=== PATIENT | female | born 1960 | race Caucasian/White ===

== ENCOUNTER 2018-08-05 17:17 | Inpatient (IN) | payer OTHER ==
[~2018-08-05] VITALS: Ht 172.7 cm; Wt 86.2 kg
[2018-08-05 17:17] VITALS: BP 110/67
[2018-08-05 17:39] LABS: ABSOLUTE NEUTROPHILS 4.1 thou/uL (1.4-8.2); BASOPHILS 0.6 % (0.0-2.0); EOSINOPHILS 1.9 % (0.0-3.0); HEMATOCRIT 27.1 % (37.0-47.0); HEMOGLOBIN 9.3 gm/dL (12.0-15.0); MCH 27.8 pg (26.0-34.0); MCHC 34.5 g/dL (28.0-37.0); MCV 80.6 fL (80.0-100.0); MONOCYTES 6.5 % (1.0-8.0); PLATELET COUNT 177 thou/uL (150-400); RBC 3.36 mil/uL (4.20-5.00); RDW 15.1 % (10.5-14.5); WBC 5.1 thou/uL (4.0-11.0)
[2018-08-05 17:45] LABS: ANION GAP 10 mmol/L (7-16); BUN 44 mg/dL (7-18); CALCIUM 8.2 mg/dL (8.5-10.1); CHLORIDE 102 mmol/L (98-107); CO2 23 mmol/L (21-32); GLUCOSE 131 mg/dL (74-106); POTASSIUM 4.5 mmol/L (3.5-5.1); SODIUM 135 mmol/L (136-145)
[2018-08-05 17:54] LABS: ALBUMIN 2.8 g/dL (3.4-5.0); SGOT 30 U/L (15-37); SGPT 27 U/L (30-65); TOTAL BILIRUBIN 0.3 mg/dL (<0.1-1.0); TOTAL PROTEIN 6.2 g/dL (6.4-8.2); TROPONIN-I <0.06 ng/mL (<0.06)
--- NOTE | 2018-08-05 19:11 | EKG ---
[facility] [place] [address] ELECTROCARDIOGRAM REPORT Name: NAINA HER Room #: [id number] ������������������ Admission: 08/05/18 ������������������ Attend Phys: Discharge: ������������������ Date of : 60 Report #: [id number] ����������������������������������������������������������������� [id number] THIS REPORT FOR: //name// [facility] ED Test Date: 2018-08-05 Test Time: 17:26:07 Pat Name: NAINA HER Department: Room: Gender: F Patient Educator: NORA : 1960 Requested By: Daxa Maldonado Order Number: [id number] MD: Parviz Casas Measurements Intervals [place] Rate: 62 P: 52 W[place]: 195 QRS: -26 QRSD: 105 T: 151 QT: 426 QTc: 433 Interpretive Statements Sinus rhythm Borderline left axis deviation Low voltage, precordial leads Consider anterior infarct age indeterminate Baseline wander in lead(s) V3 Nonspecific ST-T wave changes No previous ECG available for comparison Electronically Signed On 08-05-2018 19:11:32 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
[2018-08-05 21:59] VITALS: BP 112/59
[2018-08-05 22:17] VITALS: BP 114/60
[2018-08-05 22:51] VITALS: BP 111/57
[2018-08-05 23:18] LABS: % SATURATION 18 % (20-39); IRON 46 ug/dL (50-170); TIBC 257 ug/dL (250-450)
[2018-08-05 23:46] LABS: FOLIC ACID 12.4 ng/mL (8.6-58.9); TSH 190.086 uIU/mL (0.358-3.740)
[2018-08-06 02:19] VITALS: BP 123/65
[2018-08-06 02:38] LABS: HEMATOCRIT 25.8 % (37.0-47.0); HEMOGLOBIN 8.4 gm/dL (12.0-15.0); MCH 26.6 pg (26.0-34.0); MCHC 32.5 g/dL (28.0-37.0); MCV 81.8 fL (80.0-100.0); RBC 3.15 mil/uL (4.20-5.00); RDW 15.2 % (10.5-14.5); WBC 5.2 thou/uL (4.0-11.0)
[2018-08-06 03:07] LABS: ANION GAP 12 mmol/L (7-16); BUN 45 mg/dL (7-18); CALCIUM 7.6 mg/dL (8.5-10.1); CHLORIDE 101 mmol/L (98-107); CHOLESTEROL 148 mg/dL (<200); CO2 19 mmol/L (21-32); CREATININE 2.1 mg/dL (0.6-1.0); GLUCOSE 181 mg/dL (74-106); HDL CHOLESTEROL 51 mg/dL (>40); LDL CHOLESTEROL 59 mg/dL (<100); POTASSIUM 4.3 mmol/L (3.5-5.1); SODIUM 132 mmol/L (136-145); TC:HDL 2.9 Ratio (Not establshd); TRIGLYCERIDE 193 mg/dL (<150); TROPONIN-I <0.06 ng/mL (<0.06); VLDL 39 mg/dL (<40)
[2018-08-06 03:09] LABS: SERUM ASSESSMENT Clear
[2018-08-06] MEDS ORDERED: NOVOLOG MI100 UNIT/M SUBQ (05:14)
[2018-08-06 07:35] VITALS: BP 145/77
--- NOTE | 2018-08-06 11:32 | 2DMMODE ---
[facility] [address] [place] [address] 2 D/M-MODE ECHOCARDIOGRAM Name: NAINA HER Room #: 464-P ADM IN M.R.#: [id number] ������������� Admission: 08/05/18 ������������� Attend Phys: Honorio Ramírez Discharge: ��� ������������� ��� Date of : 60 Date of Service: 08/06/18 1132 �� Report #: [id number] �������� ��������������������������������������������[id number] THIS REPORT FOR: //name// APPROVED REPORT Study performed: 08/06/2018 08:25:05 EXAM: Comprehensive 2D, Doppler, and color-flow Echocardiogram Patient Location: Bedside Room #: 464 Status: routine BSA: 2.00 HR: 59 bpm BP: 145/77 mmHg Rhythm: NSR Other Information Study Quality: Adequate Risk Factors: Cardiac Risk Factors: DM, HTN, Hyperlipidemia Indications COPD Dyspnea CAD 2D Dimensions IVSd: 14.70 (7-11mm) LVOT Diam: 21.00 (18-24mm) LVDd: 43.74 mm PWd: 14.94 (7-11mm) Ascending Ao: 28.21 (22-36mm) LVDs: 33.64 (25-40mm) Aortic Root: 25.19 mm LV Single Plane 4CH: 4.00 % LV Single Plane 2CH: 47.87 % Biplane EF: 42.0 % Volumes Left Atrial Volume (Systole) Single Plane 4CH: 64.68 mL Single Plane 2CH: 41.04 mL LA ESV Index: 31.00 mL/m2 Aortic Valve AoV Peak Shankar.: 1.74 m/s [facility] [address] [place] [address] 2 D/M-MODE ECHOCARDIOGRAM Name: ARDENNAINA Iker Room #: 464-P [facility].#: [id number] ������������� Admission: 08/05/18 ������������� Attend Phys: Honorio Ramírez Discharge: ��� ������������� ��� Date of : 60 Date of Service: 08/06/18 1132 �� Report #: [id number] �������� ��������������������������������������������[id number] AO Peak Gr.: 13.98 mmHg LVOT Max P.42 mmHg LVOT Max V: 0.78 m/s MITCH Vmax: 1.52 cm2 Mitral Valve E/A Ratio: 0.8 MV Decel. Time: 226.32 ms MV E Max Shankar.: 0.80 m/s MV A Shankar.: 0.98 m/s MV PHT: 65.63 ms IVRT: 69.20 ms TDI E/Lateral E': 20.00 E/Medial E': 20.00 Medial E' Shankar.: 0.04 m/s Lateral E' Shankar.: 0.04 m/s Pulmonary Valve PV Peak Shankar.: 1.10 m/s PV Peak Gr.: 4.85 mmHg Tricuspid Valve RAP Estimate: 10.00 mmHg Left Ventricle The left ventricle is normal size. moderate Latera wall hypokinesis. Moderate concentric left ventricular hypertrophy. Left ventricular systolic function is mildly decreased. LVEF is 40-45%. Mild diastolic dysfunction is present (impaired relaxation pattern). Right Ventricle The right ventricle is normal size. The right ventricular systolic function is normal. Atria The left atrium size is normal. The right atrium size is normal. Aortic Valve The Aortic valve is sclerotic. No aortic regurgitation is present. There is no aortic valvular stenosis. Mitral Valve There is mitral annular calcification. Mild to moderate mitral regurgitation. No evidence of mitral valve stenosis. Tricuspid Valve [facility] [address] [place] [address] 2 D/M-MODE ECHOCARDIOGRAM Name: NAINA HER Room #: 464-P ADM IN M.R.#: [id number] ������������� Admission: 08/05/18 ������������� Attend Phys: Honorio Ramírez Discharge: ��� ������������� ��� Date of : 60 Date of Service: 08/06/18 1132 �� Report #: [id number] �������� ��������������������������������������������[id number] The tricuspid valve is normal in structure. There is no tricuspid valve regurgitation noted. Pulmonic Valve The pulmonary valve is normal in structure. There is no pulmonic valvular regurgitation. Great Vessels The aortic root is normal in size. IVC is mildly dilated and collapses <50% with inspiration. Pericardium Mild to moderate circumferential pericardial effusion. <Conclusion> The left ventricle is normal size. LVEF is 40-45%. moderate Latera wall hypokinesis. The Aortic valve is sclerotic. There is mitral annular calcification. Mild to moderate mitral regurgitation. The pulmonary valve is normal in structure. The aortic root is normal in size. Mild to moderate circumferential pericardial effusion. ��������������������������������������������� <ELECTRONICALLY SIGNED> ���������������������������������������� By: Parviz Casas MD ��������������������������������������������� 08/06/18 1132 113 113 Parviz Casas MD /INF
--- NOTE | 2018-08-06 13:28 | NUR ---
Assumed pt care at 0715. pt was a/ox4 with some axniousness about the evening shift. tried to relieve some of the anxiety by taking care of her needs. will continue to monitor pt.\
--- NOTE | 2018-08-06 16:09 | NUR ---
PT ADMITTED RELATED TO SHORTNESS OF BREATH, CHEST PAIN. CM MET WITH PT AT BEDSIDE THIS DAY. PT IS A&O X4. CM ROLE INTRODUCED. PT INDICATED SHE LIVES IN A HOUSE WITH HER SPOUSE, SON, DTR IN LAW, AND TWO GRANDCHILDREN. PT INDICATED THERE IS 1 STEP TO ENTER AND NO STEPS INSIDE. 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 PT INDICATED NO HH HX. PT INDICATED SHE HAS BSC. PT INDICATED SHE HAD [place] MEDICAID BUT THAT SHE HAD A [place]ICAID AP PENDING. PT INDICATED SHE PLANS TO RETURN HOME ONCE MEDICALLY STABLE. CM TO FOLLOW INDICATED WITH DC PLANNING.
[2018-08-06 16:38] VITALS: BP 128/57
[2018-08-06 20:06] VITALS: BP 110/57
[2018-08-07 04:57] VITALS: BP 144/55
--- NOTE | 2018-08-07 06:00 | NUR ---
Pt. rested quietly at intervals during the night when checked on during frequent rounds. She offers no c/o pain. No c/o shortness of air. Bed alarm is on.
[2018-08-07 07:34] VITALS: BP 167/82
[2018-08-07] MEDS ORDERED: ASPIR 8181 MG PO (07:55)
[2018-08-07] MEDS ORDERED: NORVASC5 MG PO (07:55)
[2018-08-07] MEDS ORDERED: PLAVIX 75 MG TA75 M1 PO (07:56)
[2018-08-07] MEDS ORDERED: LIPITOR80 MG PO (07:56)
[2018-08-07] MEDS ORDERED: SYNTHROID125 MC1 PO (07:57)
[2018-08-07] MEDS ORDERED: IMDUR 30 MG TAB30 M1 PO (07:57)
[2018-08-07] MEDS ORDERED: TOPROL XL25 MG PO (07:58)
--- NOTE | 2018-08-07 09:49 | NUR ---
Pt states "I have a small wound on my leg that won't heal. I first saw it two weeks ago." I observed a small wound on the pts lower right leg. The wound appeared closed, dry, and black. The pt did not state tenderness when the wound was palpated. The pt c/o loss of feeling in her right leg, from the hip down, that she said started three weeks ago.
--- NOTE | 2018-08-07 12:52 | NUR ---
CARE TEAM INDICATED THAT PT WILL LIKELY BE HERE OVER THE WEEKEND DUE TO A POSITIVE STRESS TEST CARDIOLOGY IT TO SEE PT. CM TO FOLLOW INDICATED WITH DC PLANNING.
[2018-08-07 14:20] VITALS: BP 129/59
--- NOTE | 2018-08-07 17:30 | NUR ---
WOUND CONSULT: PT. WAS SEEN TODAY BY DR. KELLER AND MYSELF. PT. IS MISSING A TOENAIL TO HER RIGHT FOOT 5TH TOE AND THERE IS A CHRONIC ULCER TO HER RIGHT POSTERIOR CALF THAT IS DRY, BLACK, ESCHAR. PT. REPORTS THAT THIS AREA IS TENDER. RECOMMENDATIONS: GENT TO RIGHT TOE AND BETADINE TO CALF, COMPLETE CARES DAILY PT. AND STAFF NURSE WERE INSTRUCTED ON PLAN OF CARE.
[2018-08-07 20:00] VITALS: BP 127/56
[2018-08-08 04:00] VITALS: BP 127/73
[2018-08-08 05:23] LABS: ALBUMIN 2.5 g/dL (3.4-5.0); CREATININE 2.3 mg/dL (0.6-1.0); PHOSPHORUS 4.2 mg/dL (2.5-4.9); POTASSIUM 4.5 mmol/L (3.5-5.1)
--- NOTE | 2018-08-08 06:00 | NUR ---
Pt. reted quietly at intervals during the night when checked on during frequent rounds. Pt. c/o generalized pain and was given po pain meds (see emar) with some relief noted. She c/o anxiety and prn xanax given (see emar) with some relief noted. Bed alarm is on.
[2018-08-08 08:00] VITALS: BP 146/83
[2018-08-08 11:23] LABS: URINE BILIRUBIN NEGATIVE (Negative); URINE BLOOD 1+ (Negative); URINE CLARITY CLEAR; URINE COLOR YELLOW; URINE GLUCOSE-RANDOM* TRACE (Negative); URINE KETONES NEGATIVE (Negative); URINE LEUKOCYTES TRACE (Negative); URINE NITRITE NEGATIVE (Negative); URINE PROTEIN (DIPSTICK) 2+ (Negative); URINE SPECIFIC GRAVITY 1.015 (1.005-1.035); URINE UROBILINOGEN 0.2 E.U./dl (0.2-1.0)
[2018-08-08 11:31] LABS: AMP/METHAMP Negative (Negative); BARBITURATES Negative (Negative); BENZODIAZEPINES Negative (Negative); COCAINE Negative (Negative); METHADONE Negative (Negative); OPIATES Negative (Negative); PCP Negative (Negative)
[2018-08-08 11:32] LABS: PROT/CREAT RATIO 6.2; URINE CREATININE-RANDOM* 42.2 mg/dL; URINE PROTEIN-RANDOM* 260.9 mg/dL (<11.9)
[2018-08-08 11:37] LABS: CASTS None Seen /LPF (None Seen); CRYSTALS None Seen /LPF (None Seen); SQUAMOUS 0-3 Few /LPF (0-3); URINE RBC 0-2 Rare /HPF (0-2); URINE WBC 0-5 Rare /HPF (0-5)
[2018-08-08 15:00] VITALS: BP 134/63
--- NOTE | 2018-08-08 18:54 | NUR ---
VSS-AFEBRILE. SR WITH OCCASIONAL ECTOPY. LUNGS DIMINISHED IN ALL THOMAS BILATERALLY. NO REPORTED PAIN. VERY SLEEPY ALL DAY, AWOKE FOR MEALS AND TO USE RESTROOM. ABLE TO TRANSFER SELF FROM BED TO COMMODE WITH STANDBY ASSIST. NO DIFFICULTY VOIDING, NO BM THIS SHIFT. NO REPORTED N/V. CARDIAC CATH SET FOR Friday08/10/18, PATIENT EDUCATED ON PROCEDURE, ALL QUESTIONS ANSWERED. CALLS APPROPRIATELY FOR ASSISTANCE.
[2018-08-09 03:32] VITALS: BP 125/75
--- NOTE | 2018-08-09 04:33 | NUR ---
Pt. rested quietly at intervals during the night when checked on during frequent rounds. She c/o tailbone pain and was given po tylenol (see emar) with some relief noted. She also c/o anxiety and was given po xanax (see emar) with some relief noted. Bed alarm is on.
[2018-08-09 04:38] LABS: ALBUMIN 2.6 g/dL (3.4-5.0); CALCIUM 8.8 mg/dL (8.5-10.1); CREATININE 2.4 mg/dL (0.6-1.0); PHOSPHORUS 4.3 mg/dL (2.5-4.9)
[2018-08-09 07:42] VITALS: BP 129/64
[2018-08-09 13:27] VITALS: BP 111/56
--- NOTE | 2018-08-09 14:38 | NUR ---
TOWARDS POC PT A/O X4, VSS,AFEBRILE. FALL PRECAUTION IN PLACE. PT WILL BE NPO AT MD, FOR CARDIAC CATH IN AM, CONSENT SIGNED, ATTACHED TO CHART. WILL CONTINUE TO MONITOR.
[2018-08-09 19:09] VITALS: BP 102/51
[2018-08-10] VITALS (8 sets, daily range): BP systolic 126–149; BP diastolic 59–75
[2018-08-10 06:09] LABS: ALBUMIN 2.8 g/dL (3.4-5.0); CALCIUM 8.5 mg/dL (8.5-10.1); CREATININE 2.3 mg/dL (0.6-1.0); POTASSIUM 5.6 mmol/L (3.5-5.1)
--- NOTE | 2018-08-10 11:25 | HC ---
[facility] [place] [address] CONSULTATION Name: NAINA HER Room #: 464-P ADM IN M.R.#: [id number] Admission: 08/05/18 ������������������ Attend Phys: Honorio Tate Discharge: ������������������ Date of : 60 Report #: [id number] THIS REPORT FOR: //name// CC: Honorio Tate NO PCP DATE OF SERVICE: 08/07/2018 REASON FOR CONSULTATION: Chronic kidney disease. HISTORY OF PRESENT ILLNESS: This 58-year-old patient with longstanding diabetes and triopathy was admitted with chest tightness and shortness of air. She has history of coronary artery disease, status post 7 previous coronary stents. She had a nuclear test, which was confirmatory for cardiac ischemia and is scheduled for a heart catheterization. She has known chronic kidney disease, baseline creatinine of 2 along with her triopathy. PAST MEDICAL HISTORY: Longstanding diabetes with triopathy as mentioned. She is a former smoker with COPD and asthma. 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 HOME MEDICATIONS: Include insulin, amlodipine, aspirin, atorvastatin, Plavix 75 mg daily, Imdur 30 mg daily, Synthroid 125 mcg daily, Toprol-XL 25 mg daily. SOCIAL HISTORY: Former heavy smoker, quit a couple of years ago and substantial alcohol. Has a son who lives at home with family. REVIEW OF SYSTEMS: GENERAL: She is somewhat chronically ill. EYES: She is blind, but has a lot of burning and discomfort in her eyes. ENT: Hearing okay, swallows okay. No mouth sores. ENDOCRINE: Positive for diabetes and thyroid disease. RESPIRATORY: Easily short winded, particularly the other night. CARDIAC: Squeezing chest pain the other night, not now. Occasional leg swelling. GASTROINTESTINAL: In general without nausea, vomiting or abdominal pain. GENITOURINARY: Urinary stream okay without dysuria or hematuria. NEUROLOGIC: She has got peripheral neuropathy and the blindness as mentioned. MUSCULOSKELETAL: No particular arthritis. PHYSICAL EXAMINATION: GENERAL: This is a somewhat chronically ill appearing patient, in some distress from burning in her eyes. EYES: Otherwise blind. ENT: Hearing okay. No mouth sores or ulcers. Buccal mucosa benign. [address] [address] CONSULTATION Name: NAINA HER Room #: 464-P [facility] IN M.R.#: [id number] Admission: 08/05/18 ������������������ Attend Phys: Honorio Tate Discharge: ������������������ Date of : 60 Report #: [id number] SKIN: She has got a leg ulcer in the back of her right leg. SKELETAL: Left below knee amputation. NECK: No carotid bruits. CHEST: Occasional wheezes and rhonchi. HEART: Regular rate and rhythm, distant. ABDOMEN: Soft, nontender, somewhat obese. EXTREMITIES: 1+ edema, right ankle. LABORATORY DATA: No urinalysis or urine studies. Hemoglobin only 8.4. Sodium 132, potassium 4.3, chloride 101, bicarbonate 19, BUN 45, creatinine 2.1, albumin 2.8. ASSESSMENT AND PLAN: 1. Chronic kidney disease, apparently has known nephropathy. I do not know much about proteinuria. Likely will need a renin angiotensin drug after heart catheterization is finished, etc. 2. Coronary artery disease with ischemia. She will need a heart catheterization. We will prep her and hydrate her. Again, hold renin angiotensin drugs and diuretics for now. 3. Diabetes mellitus with triopathy including blindness and peripheral neuropathy. 4. Status post left below the knee amputation for diabetic foot ulcer. 5. Chronic obstructive pulmonary disease with asthma. ��������������������������������������������� <ELECTRONICALLY SIGNED> ���������������������������������������� By: Isiah Victoria MD ��������������������������������������������� 08/10/18 1125 1602 [id number] Isiah Victoria MD /nt
--- NOTE | 2018-08-10 11:47 | NUR ---
Pt with right toe wound and chronic ulcer right calf-black/eschar and seen by wound care team. Admit with SOA, chest pain. NPO for cardiac cath today. Upon visit, pt appeared irritated, awaiting procedure, hungry, wanting to speak with RN and nurse rehabilitation center manager. Nurse not available, left message with US. BG elevated. Resume diet following procedure. Low nutrition risk
--- NOTE | 2018-08-10 14:31 | NUR ---
CARE TEAM INDICATED THAT PT IS HAVING A HEART CATH THIS DAY. CM TO FOLLOW INDICATED WITH DC PLANNING.
--- NOTE | 2018-08-10 18:47 | NUR ---
PT ALERT AND ORIENTED TIMES FOUR. TEARFUL SOME THIS SHIFT. VSS, 98%2L, SR ON TELE, IVF INFUSING PER ORDER. CARDIAC CATH DONE THIS AFTERNOON, RIGHT GROIN SITE C/D/I. PT C/O PAIN PRN PAIN MEDICATIONS GIVEN WITH SOME RELEIF. PT TOLERATES MEDS AND MEALS. PT SLOWLY PROGRESSING TOWRADS POC GOALS.
--- NOTE | 2018-08-11 02:56 | NUR ---
PT GIVEN TYENOL FOR PAIN PT WAS ABLE TO SLEEP MOST OF THE SHIFT PT USED CALL LIGHT EFFECTIVELY NO ISSUES OVERNIGHT.
[2018-08-11 03:23] VITALS: BP 121/53
[2018-08-11 04:03] LABS: HEMATOCRIT 23.4 % (37.0-47.0); HEMOGLOBIN 7.9 gm/dL (12.0-15.0); MCH 27.5 pg (26.0-34.0); MCHC 33.9 g/dL (28.0-37.0); MCV 81.2 fL (80.0-100.0); RBC 2.88 mil/uL (4.20-5.00); RDW 15.4 % (10.5-14.5)
[2018-08-11 04:10] LABS: ALBUMIN 2.4 g/dL (3.4-5.0); CREATININE 2.3 mg/dL (0.6-1.0); PHOSPHORUS 4.1 mg/dL (2.5-4.9); POTASSIUM 5.5 mmol/L (3.5-5.1)
[2018-08-11 08:13] VITALS: BP 131/65
[2018-08-11 13:50] VITALS: BP 121/55
--- NOTE | 2018-08-11 14:34 | NUR ---
PT HAD STENT PLACED YESTERDAY AND CARE TEAM ARE MONITORING LABS AFTER. CM TO FOLLOW INDICATED WITH DC PLANNING.
--- NOTE | 2018-08-11 16:22 | NUR ---
A/OX4, PAIN MANAGED WITH MEDICATIONS, VSS, ABLE TO MAKE NEEDS KNOWN. LEGALLY BLIND. FROM HOME LIVES WITH CHILDREN. WOUNDS TO RIGHT CALF AND 5TH TOE TREATED PER ORDERS. RIGHT LE EDEMA WITH REDNESS +1PITTING. ENCOURAGED PT TO ELEVATE RIGHT LE. PT PREFERS TO SIT ON SIDE OF BED. PT DECLINED BEDSIDE RECLINER DUE TO PAIN. CONSULTS WITH CARDIOLOGY AND NEPHROLOGY. NO PLANS TO DC HOME AT THIS TIME. FALL PRECAUTIONS IN PLACE.
[2018-08-11 20:48] VITALS: BP 118/58
--- NOTE | 2018-08-12 01:34 | NUR ---
PT GIVEN XANAX FOR ANXIETY PT USED CALL LIGHT EFFECTIVELY NO ISSUES OVERNIGHT PT WAS ABLE TO GET SOME SLEEP.
[2018-08-12 04:00] VITALS: BP 147/76
[2018-08-12 06:06] LABS: ALBUMIN 2.5 g/dL (3.4-5.0); CALCIUM 8.3 mg/dL (8.5-10.1); CREATININE 2.5 mg/dL (0.6-1.0); PHOSPHORUS 5.3 mg/dL (2.5-4.9)
[2018-08-12 06:10] LABS: POTASSIUM 6.2 mmol/L (3.5-5.1)
[2018-08-12 07:45] VITALS: BP 148/70
--- NOTE | 2018-08-12 08:57 | NUR ---
WOUND FOLLOW UP: PT. WAS SEEN ON 08/11/[address] KELLER AND MYSELF. PT. WOUNDS ARE CLINICALLY BETTER AT THIS TIME. PT. HAS HAD AN ANGIOGRAM COMPLETED WITH STENT PLACEMENT FOR BETTER BLOOD FLOW WHICH WILL AID IN WOUND HEALING. RECOMMENDATIONS: CONTINUE WITH CURRENT PLAN OF CARE. PT. AND STAFF NURSE WERE INSTRUCTED ON PLAN OF CARE.
[2018-08-12 12:53] LABS: SMEAR FOR EOSINOPHILS No Eosinophils Seen
[2018-08-12 13:38] VITALS: BP 114/50
[2018-08-12 15:10] LABS: ALBUMIN 2.7 g/dL (3.4-5.0); CALCIUM 8.7 mg/dL (8.5-10.1); CREATININE 2.5 mg/dL (0.6-1.0); PHOSPHORUS 5.6 mg/dL (2.5-4.9); POTASSIUM 5.3 mmol/L (3.5-5.1)
--- NOTE | 2018-08-12 16:48 | NUR ---
ASSUMED CARE OF PT 0700. VSS, PAIN MANAGED WITH MEDICATIONS, FOLLOWED BY DR TRUJILLO WITH NEW ORDERS FOR LASIX AND WATCH SUGARS, HOSPITALIST ADJUSTED INSULIN 4 UNITS IN ADDITION TO LOW SLIDDING SCALE. NO BM AT THIS TIME. POTASSIUM 5.3. RIGHT LE EDEMA ENCOURAGE PT TO ELEVATE LEG. CALLS APPROPRIATELEY.
[2018-08-12 20:00] VITALS: BP 123/48
[2018-08-13 01:33] VITALS: BP 133/58
--- NOTE | 2018-08-13 04:47 | NUR ---
ASSESSMENT: PT REMAIN ALERT AND ORIENT TIMES THREE. UP TO BSC WITH GB AND ASSIST OF ONE. ALPRAZOLAM WAS GIVEN FOR ANXIETY AND PER REQUEST. VSS, AFEBRILE. SR WITH 1ST DEGREE PER MONITOR. RIGHT CALVE NOTED WITH DRESSING C/D/I. SOB WITH EXERTIONS. SLOW PROGRESS TOWARDS DC GOALS. WILL CONTINUE TO MONITOR.
[2018-08-13 05:23] LABS: ALBUMIN 2.7 g/dL (3.4-5.0); CALCIUM 8.5 mg/dL (8.5-10.1); CREATININE 2.6 mg/dL (0.6-1.0); PHOSPHORUS 5.7 mg/dL (2.5-4.9)
[2018-08-13 05:27] LABS: POTASSIUM 5.3 mmol/L (3.5-5.1)
[2018-08-13 07:12] VITALS: BP 138/78
[2018-08-13 14:07] VITALS: BP 121/54
--- NOTE | 2018-08-13 15:29 | NUR ---
ASSUMED CARE AT 0700. AXOX4. SEEN BY DR.REID NIELSEN, AND AT BEDSIDE. STILL IMPROVING ON RENAL FUNCTION. NOT READY FOR D/C PER MD. NO S/S ACUTE DISTRESS NOTED OR REPORTED AT THIS TIME. WILL CONT TO MONITOR FOR ANY CHANGES IN CONDITION.
--- NOTE | 2018-08-13 16:09 | NUR ---
WOUND FOLLOW UP: PT. WAS SEEN TODAY BY DR. KELLER AND MYSELF. PT. WOUNDS ARE CLINICALLY BETTER TODAY. RECOMMENDATIONS: CONTINUE WITH CURRENT PLAN OF CARE. PT. AND STAFF NURSE WERE INSTRUCTED ON PLAN OF CARE.
[2018-08-13 20:00] VITALS: BP 118/51
--- NOTE | 2018-08-14 04:01 | NUR ---
PT GIVEN TYENOL FOR PAIN PT USED CALL LIGHT EFFECTIVELY NO ISSUES OVERNIGHT.
[2018-08-14 04:54] VITALS: BP 131/60
[2018-08-14 05:37] LABS: ABSOLUTE NEUTROPHILS 3.6 thou/uL (1.4-8.2); EOSINOPHILS 3.5 % (0.0-3.0); HEMATOCRIT 23.6 % (37.0-47.0); HEMOGLOBIN 7.8 gm/dL (12.0-15.0); LYMPHOCYTES 6.6 % (24.0-44.0); MCH 26.9 pg (26.0-34.0); MCHC 33.1 g/dL (28.0-37.0); MCV 81.4 fL (80.0-100.0); MONOCYTES 6.6 % (1.0-8.0); PLATELET COUNT 217 thou/uL (150-400); POLYS 82.3 % (36.0-66.0); RDW 15.1 % (10.5-14.5); WBC 4.3 thou/uL (4.0-11.0)
[2018-08-14 05:59] LABS: CALCIUM 8.6 mg/dL (8.5-10.1); CREATININE 2.9 mg/dL (0.6-1.0); PHOSPHORUS 6.7 mg/dL (2.5-4.9)
[2018-08-14 06:03] LABS: POTASSIUM 5.5 mmol/L (3.5-5.1)
[2018-08-14 06:17] LABS: ALBUMIN 2.6 g/dL (3.4-5.0)
[2018-08-14 08:00] VITALS: BP 141/67
[2018-08-14 15:00] VITALS: BP 137/71
--- NOTE | 2018-08-14 15:17 | NUR ---
WOUND FOLLOW UP: PT. WAS SEEN TODAY BY DR. KELLER AND MYSELF. PT. WOUNDS ARE CLINICALLY BETTER AT THIS TIME. RECOMMENDATIONS: CONTINUE WITH CURRENT PLAN OF CARE. PT. AND STAFF NURSE WERE INSTRUCTED ON PLAN OF CARE.
--- NOTE | 2018-08-14 15:56 | NUR ---
CARE TEAM INDICATED THAT PT WILL REMAIN HOSPITALIZED OVER THE WEEKEND. CM TO FOLLOW INDICATED WITH DC PLANNING ONCE MEDICALLY STABLE.
--- NOTE | 2018-08-14 19:57 | NUR ---
ASSUMED PATIENT CARE AT 0715. PATIENT LEGALLY BLIND. NEEDS SETUP FOR MEALS. SAT UP ON SIDE OF BED MOST OF THE DAY. NEEDS STANDBY ASSIST TO BSC. MEDICATED WITH TYLENOL FOR GENERALIZED PAIN AND HELPFUL. MEDICATED X 1 WITH XANAX FOR ANXIETY AND HELPFUL. CALLS FOR HELP APPROPRIATELY. TOLERATING DIET WELL. BLOOD SUGARS BETTER CONTROLLED. FALL PRECAUTIONS IN PLACE.
[2018-08-14 20:07] VITALS: BP 115/48
[2018-08-15 04:19] VITALS: BP 126/49
[2018-08-15 06:08] LABS: ALBUMIN 2.5 g/dL (3.4-5.0); CALCIUM 8.3 mg/dL (8.5-10.1); CREATININE 2.9 mg/dL (0.6-1.0); PHOSPHORUS 6.2 mg/dL (2.5-4.9); POTASSIUM 5.8 mmol/L (3.5-5.1)
[2018-08-15 08:44] VITALS: BP 145/76
[2018-08-15 17:00] VITALS: BP 104/53
[2018-08-15 20:12] VITALS: BP 128/69
--- NOTE | 2018-08-15 23:14 | NUR ---
PT REQUESTED FOR AND RECIVED TYLENOL FOR PAIN ON HER SHOULDERS AND NECK,LORAZEPAM FOR ANXIETY.PT NOT COMPLIANT WITH DM,NEEDS CONSTANT REMINDER TO MAKE GOOD CHOICES FOR HS SNACK.EDEMA TO HER RLE ENCOURAGED PT TO ELEVATE LEG WHILE IIN BED.WOUND NOTED ON HER R POSTERIOR CALF AND R 5TH TOE. REPORT GIVEN TO JAVIER AT 2085
[2018-08-16 03:58] VITALS: BP 133/76
--- NOTE | 2018-08-16 06:25 | NUR ---
A/O, vss, afebrile, no n/v; patient sat up in bed for a rest. O2 3 L. Denied chest pain, no signs of soa. Lab result of this AM checked, pending, will keep monitoring.
[2018-08-16 06:40] LABS: ALBUMIN 2.7 g/dL (3.4-5.0); CALCIUM 8.9 mg/dL (8.5-10.1); CREATININE 2.6 mg/dL (0.6-1.0); PHOSPHORUS 5.9 mg/dL (2.5-4.9)
[2018-08-16 10:00] VITALS: BP 133/58
[2018-08-16 14:43] VITALS: BP 127/59
--- NOTE | 2018-08-16 14:55 | NUR ---
ASSUMED CARE AT 0700. AXOX4. WOUND CARE RENDERED TO R 5TH TOE PER MD ORDER. R CALF WOUND DRESSING CLEAN, DRY AND INTACT. DID NOT OPEN. SEEN BY DR. RODRIGUEZ AT BEDSIDE AND . NO S/S ACUTE DISTRESS NOTED OR REPORTED AT THIS TIME. WILL CONT TO MONITOR FOR ANY CHANGES IN CONDITION.
[2018-08-16 20:02] VITALS: BP 118/68
[2018-08-17 03:36] LABS: ALBUMIN 2.6 g/dL (3.4-5.0); CREATININE 2.8 mg/dL (0.6-1.0); PHOSPHORUS 5.6 mg/dL (2.5-4.9); POTASSIUM 5.2 mmol/L (3.5-5.1)
[2018-08-17 04:31] VITALS: BP 126/59
--- NOTE | 2018-08-17 07:49 | NUR ---
Assumed care at 1845. Pt resting in bed. Denies chest pain. No identified needs at the moment. Will continue to monitor.
[2018-08-17 08:00] VITALS: BP 131/66
--- NOTE | 2018-08-17 08:19 | HC ---
[facility] [place] [address] [address] CONSULTATION Name: NAINA HER Room #: 464-P ADM IN M.R.#: [id number] Admission: 08/05/18 ������������������ Attend Phys: Honorio Tate Discharge: ������������������ Date of : 60 Report #: [id number] THIS REPORT FOR: //name// CC: Honorio Tate NO PCP DATE OF SERVICE: 08/07/2018 CHIEF COMPLAINT: Right leg and right fifth toe ulceration. HISTORY OF PRESENT ILLNESS: This is a 58-year-old female patient admitted to the hospital with a history of COPD and coronary artery disease and anxiety, who has had shortness of breath and chest pain. She described the heaviness in her chest like an elephant. She was noted to have a small ulceration on her right posterior calf with some swelling as well as she had a small avulsion injury to the right fifth toenail and I have been asked to see her with regard to wound care. She is still feeling anxious at this time with some mild shortness of breath. She does complain mainly of pain in her right fifth toe. ALLERGIES: AMOXICILLIN. PAST MEDICAL HISTORY: Positive for history of being legally blind. She has had a previous left below-knee amputation, COPD, asthma, type 2 diabetes mellitus, coronary artery disease with multiple stents, hypertension, hyperlipidemia, gastroesophageal reflux, congestive heart failure, chronic kidney disease, hypothyroidism, peripheral neuropathy. SOCIAL HISTORY: The patient has 1-2 pack per day smoking history of greater than 40 years. She quit in 2004. She denies alcohol use. FAMILY HISTORY: Noncontributory. MEDICATIONS: Reviewed in her MAR. REVIEW OF SYSTEMS: CONSTITUTIONAL: The patient denies fever, chills or weight loss. NEUROLOGICAL: The patient denies focal weakness, numbness or tingling. EYES: The patient is blind bilaterally. No new changes. ENT: The patient denies earache, nasal drainage, sore throat. CARDIOVASCULAR: The patient does have chest pain and some shortness of breath and mild diaphoresis. PULMONARY: The patient complains of shortness of breath without cough or hemoptysis. GASTROINTESTINAL: The patient denies nausea, vomiting or abdominal pain. ORTHOPEDIC: The patient does have some swelling and ulceration to the right leg and right fifth toe injury. [address] [address] CONSULTATION Name: NAINA HER Room #: 464-P [facility] IN M.R.#: [id number] Admission: 08/05/18 ������������������ Attend Phys: Honorio Ann Bebeto Discharge: ������������������ Date of : 60 Report #: [id number] Other systems in a 14-point review of systems are negative. PHYSICAL EXAMINATION: VITAL SIGNS: At this time include temperature 36.4, pulse 61, respiratory rate of 18, blood pressure 129/59. GENERAL: This is a chronically ill-appearing female patient who appears to be in mild discomfort and somewhat anxious. HEENT: Head normocephalic. Nose and throat clear. NECK: Supple. LUNGS: Clear. HEART: Regular rhythm. ABDOMEN: Soft. Bowel sounds present. EXTREMITIES: Left below-knee amputation appears to be healed and intact. There is a small circular ulceration on her right posterior calf. It is covered with dry eschar that appears superficial. There is no separation or evidence of infection. There is evidence of an avulsion of her toenails of the right fifth toe. A small amount of bleeding is present. It does not appear to be infected, although it is tender to palpation. NEUROLOGIC: The patient is alert, does move all 4 extremities spontaneously. LABORATORY DATA: Includes sodium 132, potassium 4.3, chloride 101, CO2 19, BUN 45, creatinine 2.1, glucose 181. Troponin less than 0.6. White blood cell count 5.2 with hemoglobin 8.4. CLINICAL IMPRESSION: 1. Diabetic type ulceration to the right posterior calf. 2. Avulsion injury to the right fifth toenail. RECOMMENDATIONS: At this point in time, we will recommend a bordered foam dressing to the right posterior calf. We recommend gentamicin ointment and a Band-Aid to the right fifth toe, both to be changed daily. We will recommend MARY siddiqi while she is in bed for pressure prophylaxis involving the right lower extremity. I appreciate being asked to see her in consultation. ��������������������������������������������� <ELECTRONICALLY SIGNED> ���������������������������������������� By: Woodrow Velasco MD ��������������������������������������������� 08/17/18 0819 [id number] Woodrow Velasco MD /nt
--- NOTE | 2018-08-17 11:06 | NUR ---
Followup: pt eating 100% all meals. Remains low nutrition risk
[2018-08-17] MEDS ORDERED: DEMADEX 2020 MG/1 TA PO (11:29)
[2018-08-17] MEDS ORDERED: SODIUM BICARBO650 M3 PO (11:29)
[2018-08-17 19:24] VITALS: BP 118/53
--- NOTE | 2018-08-17 20:04 | NUR ---
Assumed pt care this am, wound care done on both site of her leg. Able to transfer pt from bed to the commode. Pt complained of pain, medication given pt was asleep after. Pt has good appetite, wuld finish her meals. Hydration promoted through out the day.
[2018-08-18 04:03] LABS: ALBUMIN 2.6 g/dL (3.4-5.0); CALCIUM 8.9 mg/dL (8.5-10.1); CREATININE 2.9 mg/dL (0.6-1.0); PHOSPHORUS 5.7 mg/dL (2.5-4.9); POTASSIUM 5.1 mmol/L (3.5-5.1)
[2018-08-18 04:14] VITALS: BP 123/45
--- NOTE | 2018-08-18 05:14 | NUR ---
Pt. rested quietly at intervals during the night when checked on during frequent rounds. She requested a po xanax for anxiety which was helpful (see emar). Pt. also c/o some back and neck pain and was given po tylenol (see emar) which was helpful. Bed alarm is on.
[2018-08-18 08:59] LABS: HEMATOCRIT 21.8 % (37.0-47.0); HEMOGLOBIN 7.3 gm/dL (12.0-15.0); MCH 27.5 pg (26.0-34.0); MCHC 33.6 g/dL (28.0-37.0); MCV 81.8 fL (80.0-100.0); RBC 2.66 mil/uL (4.20-5.00); RDW 15.2 % (10.5-14.5); WBC 4.7 thou/uL (4.0-11.0)
[2018-08-18 10:23] VITALS: BP 116/54
[2018-08-18 15:08] VITALS: BP 128/55
--- NOTE | 2018-08-18 16:52 | NUR ---
FOLLOWING REGARDING DC PLANNING. RENAL ASSESSING FOR FURTHER CARE NEEDS.
--- NOTE | 2018-08-18 18:12 | NUR ---
PT STABLE THROUGHOUT SHIFT. PT C/O PAIN WHICH WAS ADDRESSED WITH MEDICATION. PT RESTING COMFORTABLY.
[2018-08-18 20:03] VITALS: BP 118/50
--- NOTE | 2018-08-19 02:10 | NUR ---
Assumed care at 1845. Pt resting in bed. Denies chest pain or SOB. Changed the bandaid on the right too. Gave her some pain meds once. Shes still on RA. Running SR on Tele. No identified needs at the moment. Call light within reach. Will continue to monitor.
[2018-08-19 03:13] VITALS: BP 135/56
[2018-08-19 04:07] LABS: ALBUMIN 2.8 g/dL (3.4-5.0); CALCIUM 9.8 mg/dL (8.5-10.1); CREATININE 3.2 mg/dL (0.6-1.0); PHOSPHORUS 6.1 mg/dL (2.5-4.9); POTASSIUM 5.2 mmol/L (3.5-5.1)
[2018-08-19 04:16] LABS: HEMATOCRIT 22.9 % (37.0-47.0); HEMOGLOBIN 7.6 gm/dL (12.0-15.0); MCH 27.1 pg (26.0-34.0); MCHC 33.1 g/dL (28.0-37.0); MCV 81.8 fL (80.0-100.0); RBC 2.8 mil/uL (4.20-5.00); RDW 14.9 % (10.5-14.5); WBC 4.7 thou/uL (4.0-11.0)
[2018-08-19 08:55] VITALS: BP 134/65
[2018-08-19 09:12] LABS: COMPLEMENT-C3 160 mg/dL (82-167); COMPLEMENT-C4 43 mg/dL (14-44)
[2018-08-19 14:20] VITALS: BP 133/62
--- NOTE | 2018-08-19 18:22 | NUR ---
Pt A&Ox4, VSS WITH NO C/O PAIN AT THIS TIME. NO C/O OF SOA OR CHEST PAIN. LUNGS CLEAR AND RHYTHM REGULAR. PT CALM AND COOPERATIVE. WILL CONTINUE TO MONITOR.
[2018-08-19 19:57] VITALS: BP 133/61
[2018-08-20 03:22] VITALS: BP 128/53
--- NOTE | 2018-08-20 07:23 | NUR ---
Assumed care at 1845. Pt resting in bed. No identified needs at the moment. Will continue to monitor.
[2018-08-20 07:53] VITALS: BP 134/68
[2018-08-20 08:08] LABS: CALCIUM 9.5 mg/dL (8.5-10.1); CREATININE 2.8 mg/dL (0.6-1.0); POTASSIUM 5.7 mmol/L (3.5-5.1)
[2018-08-20 08:12] LABS: ALBUMIN 2.6 g/dL (3.4-5.0); PHOSPHORUS 6.2 mg/dL (2.5-4.9)
[2018-08-20 16:16] VITALS: BP 136/71
--- NOTE | 2018-08-20 19:19 | NUR ---
ASSUMED CARE AT 0700. PT A&OX4. PT PIVOTS X1 ASSIST AND GAIT BELT FROM BED TO BEDSIDE COMMODE. PT REFUSES TO SIT IN RECLINER IN ROOM AND STATES SHE LIKES TO SIT ON SIDE OF BED WHEN SITTING UP WITH BEDSIDE TABLE IN FRONT OF HER. PT IS LEGALLY BLIND AND REQUIRES FULL TRAY SET UP AND FOR SOMEONE TO EXPLAIN TO HER WHERE FOOD ITEMS ON TRAY ARE. PT IS ABLE TO FEED HERSELF AFTER THAT WITH OUT DIFFICULTY. PT IS L [place]. PT DOES GET ANXIOUS AND ASKS FOR PRN ANTI ANXIETY MEDICATION. ONCE MEDICATION GIVEN PT WAS ABLE TO CALM HERSELF DOWN AND RELAX.
[2018-08-20 19:51] VITALS: BP 156/64
[2018-08-21 03:10] VITALS: BP 1139/62
--- NOTE | 2018-08-21 03:26 | NUR ---
PT GIVEN NORCO FOR PAIN AND XANAX FOR ANXIETY PT WAS ABLE TO SLEEP MOST OF THE SHIFT NO ISSUES OVERNIGHT.
[2018-08-21 07:04] LABS: ALBUMIN 2.7 g/dL (3.4-5.0); CALCIUM 9.3 mg/dL (8.5-10.1); PHOSPHORUS 6.3 mg/dL (2.5-4.9)
[2018-08-21 07:07] LABS: POTASSIUM 6.4 mmol/L (3.5-5.1)
[2018-08-21 08:16] VITALS: BP 133/74
[2018-08-21 15:37] VITALS: BP 134/52
--- NOTE | 2018-08-21 20:28 | NUR ---
Assumed pt this am, pt is very anxious ans would request for anxiety medication an pain medication as well. POC followed. Assisted in her meals and promoted hydration. Wound care done on her right leg. Pt is able to pivot from bed to commode. No further issues verbalized by the pt , kept the pt comfortable during the shift.
[2018-08-21 21:14] VITALS: BP 122/66
[2018-08-22 04:11] VITALS: BP 131/58
[2018-08-22 04:59] LABS: ALBUMIN 2.7 g/dL (3.4-5.0); CALCIUM 9.1 mg/dL (8.5-10.1); CREATININE 3.1 mg/dL (0.6-1.0); PHOSPHORUS 5.4 mg/dL (2.5-4.9); POTASSIUM 5.5 mmol/L (3.5-5.1)
--- NOTE | 2018-08-22 06:28 | NUR ---
Patient alert and with anxiety elevated to a certain degree, but no abnormal behavior except asking for pain medication for neck and shoulders and anxiety medication. bed rest for most of the shift, sat up on the bed sometimes; potassium 5.5, creatine 3.1 this AM, BG has been over 200 since the afternoon of , will communicate it to the day nurse.
[2018-08-22 08:15] VITALS: BP 135/68
--- NOTE | 2018-08-22 11:38 | NUR ---
TOWARDS POC PT A/O X4, VSS, AFEBRILE, PAIN MANAGED BY MEDS. FALL PRECAUTIONS IN PLACE. NO CONCERNS VOICED, WILL CONTINUE TO MONITOR.
[2018-08-22 20:49] VITALS: BP 137/64
--- NOTE | 2018-08-23 02:24 | NUR ---
patient aox4 makes needs known. patient encouraged fluids. patient uses a bedside commode. pericare and barrier cream applied as needed.patient in bed asleep at this time breathing regular and unlaboured
[2018-08-23 03:08] VITALS: BP 132/50
[2018-08-23 05:10] LABS: ALBUMIN 2.9 g/dL (3.4-5.0); CALCIUM 9.8 mg/dL (8.5-10.1); CREATININE 2.9 mg/dL (0.6-1.0); POTASSIUM 5.1 mmol/L (3.5-5.1)
[2018-08-23 08:12] VITALS: BP 120/62
--- NOTE | 2018-08-23 14:17 | NUR ---
ASSUMED CARE OF PT AT 0700. ASSESSMENT COMPLETED. A&O,X4. C/O NECK PAIN, PAIN MEDS GIVEN ORDERED. EXPERIENCING SOME ANXIETY, ANXIETY MEDS GIVEN ORDERED. ACHS, INSULIN GIVEN PER SLIDING SCALE. PT EXHIBITED GOOD APPETITE. 4 L NC, BASLINE AT HOME, DENIES SOA. FIRST DEGREE AV BLOCK NOTED, NO CHEST PAIN. LEFT BKA. TWO WOUNDS - LEFT TOE, DRESSING CHANGED ORDERED AND RIGHT CALF, DRESSING IN PLACE. PLAN FOR POSSIBLE DISCHARGE TOMORROW. WILL CONTINUE TO MONITOR.
[2018-08-23 14:52] VITALS: BP 107/39
--- NOTE | 2018-08-23 18:10 | CATHLAB ---
[facility] [address] [place] [address] INVASIVE PROCEDURE REPORT Name: NAINA HER Room #: 464-P [facility] IN .R.#: [id number] ������������� Admission: 08/05/18 ������������� Attend Phys: Honorio Ramírez Discharge: ��� ������������� ��� Date of : 60 Date of Service: 08/23/181809 �� Report #: [id number] �������� ��������������������������������������������[id number] THIS REPORT FOR: //name// APPROVED REPORT Study performed: 08/10/2018 12:29:15 Patient Details Patient Status: In-Patient Room #: 464 The patient is a 58 year-old female Event Personnel Parviz Casas MD; , Makenna Casey RN RN, Susan Alvarez, Dorita Pulido RT(R)() Scrub Procedures Performed Left Heart Cath, provision of conscious sedation Indication Chest pain Risk Factors Peripheral Vascular Disease, Hypercholesterolemia, Coronary Artery DiseaseHypertension, Diabetes Procedure Narrative A 5F 11CM CORDIS sheath was inserted into the RFA^. Coronary angiography was performed using coronary diagnostic catheters. The right coronary system was accessed and visualized with a JR4 catheter. The left coronary system was accessed and visualized with a JL4 catheter. Left ventricular/Aortic Valve gradient assessed via catheter pullback. The patient tolerated the procedure well and there were no complications associated with the procedure. Intraoperative Conscious Sedation Sedation start time: 12:48 Case end Time: 14:59 Fentanyl 200 mcg Versed 4 mg The conscious sedation is a combined total for the runoff/intervention and the left heart cath. The fluoro time, DAP, and mGy plus contrast is a combined total for the runoff/intervention and the left heart cath. Fluoro Time: 17.37 minutes Dose: DAP 67047 cGycm2 1140 mGy [address] [address] [place] [address] INVASIVE PROCEDURE REPORT Name: NAINA HER Room #: 464-P [facility] IN [facility]#: [id number] ������������� Admission: 08/05/18 ������������� Attend Phys: Honorio Ramírez Discharge: ��� ������������� ��� Date of : 60 Date of Service: 08/23/18 1810 �� Report #: [id number] �������� ��������������������������������������������[id number] Contrast Type and Amount: Visipaque-100ml Coronary Angiography The patient's coronary anatomy is right dominant. Diagnostic Cath Left Main Normal origin and caliber bifurcates that into descending left circumflex free of high-grade disease alert. Luminalirregularities LAD Moderate caliber type II vessel which has a proximal 30% lesion. Then continues in the anterior interventricular sulcus QRS to septal and diagonal branches. In its midportion it tapers rapidly to a small string-like terminal portion at the apex of the left ventricle. Previous he placed stents appear to be patent with minimal restenosis Diagonal 1 Small to diminutive caliber vessel with diffuse irregularities present. It is less than half a millimeter in diameter Circumflex Small-caliber vessel with moderate irregularities noted and terminates to string size vessel in the posterior aspect of the ventricle. It gives rise to a first marginal branch has approximately 60-70% eccentric lesion that is not flow-limiting OM1 Small to moderate caliber vessel with moderate exterior 70% lesions in its proximal portion in a previously placed stent. The reconstitutes and proceed along the lateral aspect of the left ventricle terminating towards the apex Right Coronary Large-caliber vessel of normal origin procedures in the AV groove. Previous stents are noted in this region and are widely patent. Prior to the acute margin the vessel tapers with eccentric lesions to approximately 50% of the original diameter. It then continues on posteriorly where it at the crux of the heart a small caliber posterior descending artery and the distal circulation. The vessel tapers beyond this terminating his posterior wall branch. The distal RCA has a 50% lesion at its origin and then tapers towards a large branching terminal vessels but remains moderate caliber until the smaller vessels arise. R PDA Small-caliber vessel with high grade proximal lesions of the first third of the vessel. Its is a prior infarct vessel and the caliber of the PDA is 1.0 to possibly 1.5 mm in diameter. Left Ventriculography Left Ventriculography was not performed. Hemodynamics The aortic pressure is 154/77 mmHg with a mean of 96 mmHg. The left ventricular pressure is 172/30 mmHg with a mean of mmHg. The left [facility] [address] [place] [address] INVASIVE PROCEDURE REPORT Name: NAINA HER Room #: 464-P [facility] IN M.R.#: [id number] ������������� Admission: 08/05/18 ������������� Attend Phys: Honorio Ramírez Discharge: ��� ������������� ��� Date of : 60 Date of Service: 08/23/18 1810 �� Report #: [id number] �������� ��������������������������������������������[id number] ventricular end diastolic pressure is 52 mmHg. PCI Technique Lesion Percutaneous coronary intervention was performed on the Unspecified. Conclusion 1. Coronary artery disease significant 3 vessel with high-grade small diminutive PDA 2. Elevated left ventricle end-diastolic pressures 3. While to moderate in-stent restenosis of the left circumflex and LAD stents Recommendations Medical Therapy ��������������������������������������������� <ELECTRONICALLY SIGNED> ���������������������������������������� By: Parviz Casas MD ��������������������������������������������� 08/23/181809 09 09 Parviz Casas MD /INF
--- NOTE | 2018-08-23 18:15 | NUR ---
ANXIETY RESOLVED. NO OTHER CHANGE IN STATUS. VSS. PT IN STABLE CONDITION.
[2018-08-23 19:11] VITALS: BP 109/45
[2018-08-24 03:25] VITALS: BP 111/41
--- NOTE | 2018-08-24 03:44 | NUR ---
PAIN CONTROLLED THIS SHIFT. PATIENT NEEDS MINIMUM ASSISTANCE WITH ADL, BED MOBILITY, TRANSFER AND TOILETING.PATIENT USES BEDSIDE COMMODE. PATIENT IN BED ASLEEP AT THIS TIME BREATHING REGULAR AND UNLABOURED.
[2018-08-24 04:04] LABS: CREATININE 3.2 mg/dL (0.6-1.0); PHOSPHORUS 5.8 mg/dL (2.5-4.9); POTASSIUM 5.4 mmol/L (3.5-5.1)
[2018-08-24 08:43] VITALS: BP 127/61
--- NOTE | 2018-08-24 13:46 | NUR ---
WOUND FOLLOW UP: PT. WAS SEEN TODAY BY DR. KELLY AND MYSELF. PT. WOUNDS ARE HEALING WELL AT THIS TIME. PT. HAD NO COMPLIANTS REGARDING HER WOUND CARE AT THIS VISIT. RECOMMENDATIONS: CONTINUE WITH CURRENT PLAN OF CARE. PT. AND STAFF NURSE WERE INSTRUCTED ON PLAN OF CARE.
[2018-08-24 14:50] VITALS: BP 121/61
--- NOTE | 2018-08-24 16:32 | NUR ---
PT IS SLOWLY PROGRESSING TOWARD GOAL OF DISCHARGE. NEPHROLOGY IS FOLLOWING PT CLOSELY AND ARE POSSIBLY CONSIDERING KIDNEY BIOPSY. PLAN IS FOR PT TO RETURN HOME ONCE MEDICALLY STABLE. CM TO FOLLOW INDICATED WITH DC PLANNING.
--- NOTE | 2018-08-24 19:30 | NUR ---
ASSUMED CARE OF PT AT 0700. REPORTS DIDN'T SLEEP GOOD LAST NIGHT. REASSESSMENT COMPLETED. A&O,X4.ABLE TO VOICE HER NEEDS. C/O NECK PAIN, PAIN MEDS GIVEN ORDERED. EXPERIENCING SOME ANXIETY, ANXIETY MEDS GIVEN ORDERED. BS MONITOR, INSULIN GIVEN PER SLIDING SCALE. PT HAS GOOD APPETITE. PT ON 4 L OF OXYGEN PER NC, BASLINE AT HOME, DENIES SOA. PT CONTINENT BLADDER AND USE CALL LIGHT APPROPRIATELY FOR BSC. MIN ASSIST PIVOT TO BSC FROM CHAIR. HAS CLEAR YELLOW URINE. FIRST DEGREE AV BLOCK NOTED, NO CHEST PAIN. LEFT BKA. TWO WOUNDS - LEFT TOE, DRESSING CHANGED ORDERED AND RIGHT CALF, DRESSING CHANGED BY WOUND NURSE. SKIN ON BACK AND BUTTOCK INTACT, HAS BRUISES AND OLD SCABBED OVER ON BILATERAL LEGS AND ARMS. IV ON RIGHT FA PATENT AND INTACT SL. NEUPHROLOGIST FOLLOW UP WITH ABNORMAL CMP AND REPEAT CMP TOMORROW. NOTIFIED DR. BRAVO PT C/O INSOMIA. OBTAINED ORDER FOR VOLTARENE GEL FOR PAIN, TRAZODONE FOR SLEEP. OFFERED SUPPORTIVE CARE. MEDS GIVE ORDERED AND PER REQUEST. HAS ORDER FOR OCCULT STOOL NO BM TODAY.GAVE REPORT TO NIGHT NURSE TO CONTINUE TO MONITOR.
[2018-08-24 20:45] VITALS: BP 118/57
[2018-08-25 04:45] VITALS: BP 123/53
[2018-08-25 06:09] LABS: ALBUMIN 3.1 g/dL (3.4-5.0); CALCIUM 9.1 mg/dL (8.5-10.1); CREATININE 3.2 mg/dL (0.6-1.0); PHOSPHORUS 5.4 mg/dL (2.5-4.9); POTASSIUM 5.2 mmol/L (3.5-5.1)
--- NOTE | 2018-08-25 06:50 | NUR ---
Pt. slept intermittently during the night. She requested for anxiety med at HS and again this am. Medicated for neck and back pain with some relief. Refused voltaren gel. Up with SBA to supervision per bedside commode to void. No bm this shift. O2 at 4L/NC , shortness of breath with exertion. Bed alarm on. Pt. is blind and left BKA. Making progress towards care plan goals.
[2018-08-25 08:08] VITALS: BP 133/61
--- NOTE | 2018-08-25 10:15 | NUR ---
Nutrition: Pt continues to eat very well, 100% of meals. Possible need for kidney biopsy. K-5.2, phos 5.4, On renal diet. Low nutrition risk.
[2018-08-25 11:39] VITALS: BP 133/61
--- NOTE | 2018-08-25 12:57 | NUR ---
DIS PT IS FOR DC TODAY. IV AND HEART MONITOR DC'D. NURSE GET HOLD OF THE SON AT 1230PM. SON WILL COME IN AFTER 3PM DUE TO UNAVAILABILITY OF TRANSPORTATION.
--- NOTE | 2018-08-25 13:07 | NUR ---
WOUND FOLLOW UP: PT. WAS SEEN TODAY BY DR. WHITE AND MYSELF. PT. WOUNDS ARE CLINICALLY BETTER AT THIS TIME. RECOMMENDATIONS: CONTINUE WITH CURRENT PLAN OF CARE. PT. AND STAFF NURSE WERE INSTRUCTED ON PLAN OF CARE.
--- NOTE | 2018-08-25 14:30 | NUR ---
CARE TEAM INDICATED THAT PT IS MEDICALLY STABLE TO DISCHARGE HOME. PT IS AWAERE AND AGREEABLE. PT IS AWARE AND AGREEABLE. CARE TEAM INDICATED SHE WPOULD LIKELY NOT NEED ANYTHING UPON DC. PT HAD ALL RECOMMENDED DME IN THE HOME ENVIRONMENT. PT'S NURSE HAD NOTIFIED PT'S SPOUSE AND HE WILL PROVIDE TRANSPORT HOME.
--- NOTE | 2018-08-25 17:24 | NUR ---
CM WAS NOTIFIED BY PT'S NURSE THAT PT'S SON HAD ARRIVED IN HIS PERSONAL VEHICLE TO TRASPORT PT HOME THIS AFTERNOON. OUTSIDE ER ENTERENCE SON INDICATED THAT PT WOULDN'T FIT INTO HIS VEHICLE SHE WAS SWOLLEN TWICE THE SIZE SHE HAD BEEN BEEN UPON ADMISSION. THEY WERE ASKING ABOUT/REGUESTING TRANSFER TO . PT WAS BROUGHT BACK UP TO UNIT. CM CALLED AND SPOKE WITH PT SON. HE EXPRESSED CONCERN ABOUT PT'S APPEARENCE AND HER WELLBEING. CM INDICATED THAT CARE TEAM HAD INDICATED SHE IS MEDICALLY STABLE TO DISHCARGE HOME. CM EXPLAINED THAT PT HAD BEEN DISCHARGED AND THAT WE WOULDN'T BE ABLE TO TRANSFER PT TO FROM HERE THERE ISN'T ANY SERVICE THAT WE WOULDN'T BE ABLE TO PROVIE HERE. CM INDICATED CM WOULD LET PHYSICIAN KNOW THAT HE HAD EXPRESSED CONCERN AND SEE IF HE STILL AGREEED WITH DISHCARGE HOME THIS DAY. CM CALLED DR. ANTHONY AND HE INDICATED PT WAS MEDICALLY STABLE TO DC HOME AND THAT PT WOULD LIKELY NEED DIALYSIS IN A FEW MONTHS BUT THAT IT ISN'T EMERGENT. CM CALLED PT'S SON BACK AND INDICATED THE ABOVE. CM CALLED [employer] AND ARRANGED STRETCHER VAN TRANSPORT TO ARRIVE BETWEEN 5:22 AND 8:22. TRIP NUMBER [id number]. CM NOTIFIED PT SON AND PT. NO OTHER CM INTERVENTION INDICATED AT THIS TIME. CASE CLOSED.
== END 2018-08-25 19:15 | disposition home or self-care (01) | DRG 270 ==
LOC: ER 17:17 → 4W 22:19 → ENTRNSPT 08-25 16:00 → 4W 08-25 19:15
PROVIDERS: Emergency Medicine; Hospitalist; Internal Medicine; Internal Medicine Nephrology; Nuclear Medicine Nuclear Cardiology; Nurse Practitioner Acute Care; Nurse Practitioner Gerontology; ADMIT Hospitalist
PROC: B211YZZ Fluoroscopy of Multiple Coronary Arteries using Other Contrast (ICD-10-PCS; principal; 2018-08-10)
PROC: 4A023N7 Measurement of Cardiac Sampling and Pressure, Left Heart, Percutaneous Approach (ICD-10-PCS; principal; 2018-08-10)
PROC: B4181ZZ Fluoroscopy of Bilateral Renal Arteries using Low Osmolar Contrast (ICD-10-PCS; 2018-08-10)
PROC: 04CP3ZZ Extirpation of Matter from Right Anterior Tibial Artery, Percutaneous Approach (ICD-10-PCS; 2018-08-10)
PROC: 047P3ZZ Dilation of Right Anterior Tibial Artery, Percutaneous Approach (ICD-10-PCS; 2018-08-10)
PROC: 04CK3ZZ Extirpation of Matter from Right Femoral Artery, Percutaneous Approach (ICD-10-PCS; 2018-08-10)
PROC: 047M3DZ Dilation of Right Popliteal Artery with Intraluminal Device, Percutaneous Approach (ICD-10-PCS; 2018-08-10)
PROC: 04CM3ZZ Extirpation of Matter from Right Popliteal Artery, Percutaneous Approach (ICD-10-PCS; 2018-08-10)
PROC: 047K3D1 Dilation of Right Femoral Artery with Intraluminal Device, using Drug-Coated Balloon, Percutaneous Approach (ICD-10-PCS; 2018-08-10)
PROC: 02703ZZ Dilation of Coronary Artery, One Artery, Percutaneous Approach (ICD-10-PCS; 2018-08-10)
DX: T82.855A Stenosis of coronary artery stent, initial encounter (principal); N17.0 Acute kidney failure with tubular necrosis; E43 Unspecified severe protein-calorie malnutrition; L97.219 Non-pressure chronic ulcer of right calf with unspecified severity; I42.9 Cardiomyopathy, unspecified; E87.1 Hypo-osmolality and hyponatremia; I13.0 Hypertensive heart and chronic kidney disease with heart failure and stage 1 through stage 4 chronic kidney disease, or unspecified chronic kidney disease; I70.201 Unspecified atherosclerosis of native arteries of extremities, right leg; E11.51 Type 2 diabetes mellitus with diabetic peripheral angiopathy without gangrene; E11.22 Type 2 diabetes mellitus with diabetic chronic kidney disease; N18.3 Chronic kidney disease, stage 3 (moderate); J44.9 Chronic obstructive pulmonary disease, unspecified; J45.909 Unspecified asthma, uncomplicated; H54.8 Legal blindness, as defined in USA; E11.42 Type 2 diabetes mellitus with diabetic polyneuropathy; E03.9 Hypothyroidism, unspecified; I50.9 Heart failure, unspecified; K21.9 Gastro-esophageal reflux disease without esophagitis; S91.209A Unspecified open wound of unspecified toe(s) with damage to nail, initial encounter; E11.622 Type 2 diabetes mellitus with other skin ulcer; D64.9 Anemia, unspecified; I25.119 Atherosclerotic heart disease of native coronary artery with unspecified angina pectoris; E87.5 Hyperkalemia; S80.811A Abrasion, right lower leg, initial encounter; E66.01 Morbid (severe) obesity due to excess calories; B36.8 Other specified superficial mycoses; L03.031 Cellulitis of right toe; N14.2 Nephropathy induced by unspecified drug, medicament or biological substance; Z95.5 Presence of coronary angioplasty implant and graft; Z88.1 Allergy status to other antibiotic agents; Z87.891 Personal history of nicotine dependence; Z89.512 Acquired absence of left leg below knee; Z90.49 Acquired absence of other specified parts of digestive tract; Z79.82 Long term (current) use of aspirin; Z79.899 Other long term (current) drug therapy; Z68.28 Body mass index [BMI] 28.0-28.9, adult; X58.XXXA Exposure to other specified factors, initial encounter; Y93.89 Activity, other specified; Y92.89 Other specified places as the place of occurrence of the external cause; Y99.8 Other external cause status
CPT/HCPCS: 10045